=== PATIENT | female | born 1970 | race Caucasian/White ===

== ENCOUNTER 2017-03-23 18:26 | Emergency (ER) | payer OTHER ==
[~2017-03-23] VITALS: Ht 170.2 cm; Wt 74.8 kg
[~2017-03-23 18:26] MED LIST: ALL DAY ALLERGY10 M1 PO; ASPI325EC PO; Aldactone50 MG PO; BENZ100A PO; BUSP5 PO; Bactrim Ds Tab1 EACH PO; ENOX40I SC; FURO20 PO; FUTURO RESTORI1 EACH MC; HYDR1TAB94 PO; NAPR500 PO; NASACORT10.8 ML NS; Naprosyn500 MG PO; Norco 5-325 Ta1 EACH PO; OXYACE5T PO; POTA8 PO; POTCHL10ER PO; PRED20 PO; PROM25 PO; Percocet 5-3251 EACH PO; Prednisone20 MG PO; Pyridium100 MG PO; Sudogest30 MG PO; Tylenol325 MG PO
[2017-03-23] MEDS ORDERED: Micro-K8 MEQ (18:40)
[2017-03-23] MEDS ORDERED: CEPH500 PO (18:57)
== END 2017-03-23 19:04 | disposition home or self-care (01) ==
LOC: ER 18:26
DX: L03.213 Periorbital cellulitis (principal); Z79.899 Other long term (current) drug therapy
CPT/HCPCS: 99283